=== PATIENT | male | born 1990 | race Caucasian/White ===

== ENCOUNTER 2018-07-01 17:00 | Outpatient (RCR) | payer BC, MEDICAID, SELFPAY ==
--- NOTE | 2018-06-10 16:43 | HP.OTEVAL_ITS ---
Patient's Visit Information HAWA THORNTON is a 27 year old M, referred to Occupational Therapy by RENARD FAUSTIN, with a diagnosis of pain of R middle finger. Date of Evaluation: 06/10/18 Occupational Therapist: She Steen - Subjective Subjective: Pt seen for initial occupational therapy services secondary to increased pain R middle finger DIP joint. Pt stated pain started in early to mid December 2017 while bowling. Pt has continued to have the pain stiffness all the time since December, but sharp pains come and go pending on activity he is completing. Pt independent w/ BADLs/IADLs. Pt independent with writing and states has had some pain with typing. Pt unemployed. - Pain R middle finger 3 Pain Intensity Range: 2, 3 - Objective Objective/Observation: Pt demonstrates increased pain R middle finger DIP joint with movement and at rest. Pt states its very hard to make a fist with R hand. Pt is R hand dominent. - ROM ROM Comments: R DIP flexion 76', hyperextension 5' L DIP flexion 75', hyperextension 7'. 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 - DASH-Disabilities of Arm, Shoulder& Hand DASH Sum: 61 - Goals Goal:: Pt will demo no pain greater than 1/10 at rest R middle finger DIP joint by d/c from OT. Pt will demo no pain greater than 1/10 with movement R middle finger DIP joint by d/c from OT. Goal:: Pt will be educated on joint protection and energy conservation techniques for R middle finger with good understanding and demo 100%x. Goal:: Pt will be educated on R hand HEP with good understanding and demo 100%x. - Rehabilitation General Assessment: Pt demo increased pain R middle finger DIP joint with movement and at rest. Pt would benefit from direct occupational therapy to decrease pain R middle finger DIP joint and educate on HEP and joint protection techniques. Rehabilitation Potential: Good - Anticipated Interventions Anticipated Interventions: A/AAROM/PROM, Massage, Modalities, Orthoses, Joint Protection/Energy Conservation, Fine Motor Coord/Alexey, Education re Correct Donning Tech,Care&Wearing Sched Comp Garments, Home Program - Visit Plan Frequency: 1-2x /Week Duration: 3 Weeks General Plan: decrease pain R middle finger DIP, educate on joint protection R middle finger TEXT: Thank you for the opportunity to evaluate your patient. For Medicare and Medicare HMO plans, please review the plan of care and approve it. It will need to be FAXED BACK to us at [phone] for Medicare purposes. Please let me know if there are questions or concerns regarding this plan of care. Physician Signature: Date:
--- NOTE | 2018-07-01 18:15 | HP.OTDCSUM_ITS ---
HP - OT D/C Summary It has been my pleasure to treat HAWA THORNTON under orders from RENARD FAUSTIN, for the diagnosis of pain of R middle finger for a total of 5 visit(s). Please see the following information for a summary of their discharge status. - Objective Objective/Function: decrease pain of R middle finger - Goals Patient Goals: Decrease Pain, Decrease Swelling/Stiffness, Improve Fine Motor Skills, Use Hand/Wrist/Arm Normally Again, Resume Former Household Responsibilities (Cooking,Cleaning,Yard, etc.), Resume Hobbies Goal:: Pt will demo no pain greater than 1/10 at rest R middle finger DIP joint by d/c from OT. Pt will demo no pain greater than 1/10 with movement R middle finger DIP joint by d/c from OT. Goal:: Pt will be educated on joint protection and energy conservation techniques for R middle finger with good understanding and demo 100%x. Goal:: Pt will be educated on R hand HEP with good understanding and demo 100%x. - Plan Plan: d/c OT services this date - D/C Information Discharge Comments: Pt has been educated on adaptive techniques and energy conservation, joint protection for R middle finger with good understanding and demo. Pt has been educated on taping R middle finger DIP joint during functional activities and bowling to decrease pain with movement. Pt has been educated on use of modalities as needed for pain of R middle finger. Pt educated on joint mobilization exercises R middle finger with good understanding. Pt did not meet goal for pain at rest and with movment. Rec return back to dr. if pain continues to get worse. Pain has fluctuated from 2-4/ 10. D/C OT services at this time. If there are questions or concerns regarding this patient's occupational therapy , please fell free to call me at [phone]. Thank you for the referral of this patient. Sincerely, She Steen
== END 2018-07-01 19:00 | disposition home or self-care (01) ==
LOC: OT 17:00
PROVIDERS: Family Provider Family Medicine; PCP Family Medicine
DX: M79.644 Pain in right finger(s) (principal)
CPT/HCPCS: 97035; 97110; 97165; 97166; 97530

== ENCOUNTER → 2018-12-04 11:04 | Outpatient (CLI) | payer BC, MEDICAID, SELFPAY ==
[2018-12-04 11:52] LABS: Hematocrit 44.3 % (40-54); Hemoglobin 14.8 g/dl (13.0-16.5); Mean Corp Hgb Conc 33.4 g/gl (32-36); Mean Corpuscular Volume 89.9 fL (80-94); Mean Platelet Vol. 10.1 fl (6.2-12.0); Platelet Count 256 K/mm3 (150-450); RBC Distribution Width CV 12.3 % (11.6-14.6); RBC Distribution Width SD 39.8 fl (35.1-43.9); Red Blood Count 4.93 M/mm3 (4.6-6.2); White Blood Count 5.9 K/mm3 (4.4-11.0)
[2018-12-04 11:59] LABS: Scan Indicated on CBC? Y/N NO
[2018-12-04 12:24] LABS: ALB/GLOB Ratio 1.5 RATIO (0.9-2.4); AST(SGOT) 17 U/L (15-37); Alanine Aminotransfer ALT/SGPT 36 U/L (16-61); Albumin, Serum 4.3 g/dL (3.2-5.0); Alkaline Phosphatase 82 U/L (45-117); Anion Gap 8 (5-15); BUN 17 mg/dL (7-18); BUN/Creat Ratio 16.5 RATIO (10-20); Calcium,Total 8.9 mg/dL (8.5-10.1); Chloride 106 mmol/L (98-107); Cholesterol 162 mg/dL (200); Creatinine, Serum 1.03 mg/dL (0.70-1.30); EST Glomerular Filtration Rate 91 mL/min (>60); Est Glom Filt Rate - Afr Amer 111 mL/min (>60); Globulin 2.8 g/dL (2.2-4.2); Glucose 85 mg/dL (74-106); High Density Lipoprotein 41 mg/dL; Potassium 4.5 mmol/L (3.5-5.1); Protein, Total 7.1 g/dL (6.4-8.2); Sodium Level 138 mmol/L (136-145); T4 Free Direct 0.97 ng/dL (0.76-1.46); Thyroid Stim Hormone (TSH) 1.52 uIU/mL (0.358-3.74); Triglycerides 103 mg/dL; Very Low Density Lipoprotein 21 mg/dL (5-40)
== END ==
PROVIDERS: Family Provider Family Medicine; PCP Family Medicine; Referring Provider Psychiatry & Neurology Child & Adolescent Psychiatry; Visit Provider Psychiatry & Neurology Child & Adolescent Psychiatry
DX: F31.32 Bipolar disorder, current episode depressed, moderate (principal); Z51.81 Encounter for therapeutic drug level monitoring
CPT/HCPCS: 36415; 80053; 80061; 84439; 84443; 85027

== ENCOUNTER → 2019-08-13 | Outpatient (CLI) | payer MEDICAID, SELFPAY ==
[2016-06-08 06:56] VITALS: BMI 36.7
--- NOTE | 2019-08-13 10:54 | RAD_ITS ---
HISTORY: LBP COMPARISON: None FINDINGS: # of images incl. paperwork: 5 XR Spine Lumbar 5 Views: Calcification superimposed over the area of the cecum may be an appendicolith Calcification right lateral to the L2-L3 interspace, inferior lateral to the inferior margin of the right kidney is of unknown etiology. It could be some ingested material within the bowel lumen. A few pelvic phleboliths are present within the pelvis. Lumbar vertebral bodies are normal in height. Lumbar disc spaces are well maintained. No acute lumbar spine fracture or subluxation. No significant degenerative change. RAD/L/S Spine Min 4 Views IMPRESSION: No acute lumbar spine fracture or subluxation. at 0602 Reported and signed by: Diogenes Martinez MD Electronically Signed: Diogenes Martinez MD at 6:01 EST Tel , Service support ,
== END | disposition home or self-care (01) ==
LOC: RAD 10:48
PROVIDERS: Family Provider Family Medicine; PCP Family Medicine; Referring Provider Family Medicine; Visit Provider Family Medicine
DX: M54.5 Low back pain (principal); G89.29 Other chronic pain
CPT/HCPCS: 72110

== ENCOUNTER → 2020-06-12 13:02 | Outpatient (CLI) | payer MEDICAID, SELFPAY ==
[2020-06-12 13:52] LABS: Cholesterol 197 mg/dL (200); High Density Lipoprotein 39 mg/dL; Triglycerides 121 mg/dL; Very Low Density Lipoprotein 24 mg/dL (5-40)
== END ==
PROVIDERS: PCP Family Medicine; Referring Provider Family Medicine; Visit Provider Family Medicine
DX: Z00.00 Encounter for general adult medical examination without abnormal findings (principal); Z13.220 Encounter for screening for lipoid disorders
CPT/HCPCS: 36415; 80061

== ENCOUNTER → 2021-04-02 10:20 | Outpatient (CLI) | payer MEDICAID, SELFPAY ==
[2016-06-08 06:56] VITALS: BMI 36.7
[2021-04-02 10:49] LABS: Hematocrit 45.5 % (40-54); Hemoglobin 15.9 g/dL (13.0-16.5); Mean Corp Hgb Conc 34.9 g/dL (32-36); Mean Corpuscular Hgb 30.2 pg (27.0-32.0); Mean Corpuscular Volume 86.5 fL (80-94); Mean Platelet Vol. 9.8 fl (6.2-12.0); Platelet Count 300 K/mm3 (150-450); RBC Distribution Width CV 11.8 % (11.6-14.6); RBC Distribution Width SD 37.2 fl (35.1-43.9); Red Blood Count 5.26 M/mm3 (4.6-6.2); White Blood Count 6.2 K/mm3 (4.4-11.0)
[2021-04-02 11:09] LABS: Hemoglobin A1c 4.9 % (3.8-5.6)
[2021-04-02 11:20] LABS: ALB/GLOB Ratio 1.2 RATIO (0.9-2.4); AST(SGOT) 20 U/L (15-37); Alanine Aminotransfer ALT/SGPT 51 U/L (16-61); Albumin, Serum 4.3 g/dL (3.2-5.0); Alkaline Phosphatase 93 U/L (45-117); Anion Gap 8 (5-15); BUN 17 mg/dL (7-18); Chloride 104 mmol/L (98-107); Cholesterol 188 mg/dL (200); Creatinine, Serum 1.21 mg/dL (0.70-1.30); EST Glomerular Filtration Rate 75 mL/min (>60); Est Glom Filt Rate - Afr Amer 90 mL/min (>60); Globulin 3.5 g/dL (2.2-4.2); Glucose 94 mg/dL (74-106); High Density Lipoprotein 39 mg/dL; Protein, Total 7.8 g/dL (6.4-8.2); Sodium Level 138 mmol/L (136-145); Triglycerides 119 mg/dL; Very Low Density Lipoprotein 24 mg/dL (5-40)
== END ==
PROVIDERS: PCP Family Medicine; Referring Provider Psychiatry & Neurology Child & Adolescent Psychiatry; Visit Provider Psychiatry & Neurology Child & Adolescent Psychiatry
DX: Z79.899 Other long term (current) drug therapy (principal)
CPT/HCPCS: 36415; 80053; 80061; 83036; 85027

== ENCOUNTER → 2023-03-05 | Outpatient (CLI) | payer MEDICAID, SELFPAY ==
[2023-03-05 10:08] LABS: Hematocrit 44.1 % (40-54); Hemoglobin 15.4 g/dL (13.0-16.5); Mean Corp Hgb Conc 34.9 g/dL (32-36); Mean Corpuscular Hgb 30.7 pg (27.0-32.0); Mean Platelet Vol. 9.8 fl (6.2-12.0); Platelet Count 295 K/mm3 (150-450); RBC Distribution Width CV 11.9 % (11.6-14.6); RBC Distribution Width SD 38.5 fl (35.1-43.9); Red Blood Count 5.01 M/mm3 (4.6-6.2); White Blood Count 5.8 K/mm3 (4.4-11.0)
[2023-03-05 10:37] LABS: ALB/GLOB Ratio 1.2 RATIO (0.9-2.4); AST(SGOT) 18 U/L (15-37); Alanine Aminotransfer ALT/SGPT 34 U/L (16-61); Albumin, Serum 4.1 g/dL (3.2-5.0); Alkaline Phosphatase 82 U/L (45-117); Anion Gap 5 (5-15); BUN 17 mg/dL (7-18); BUN/Creat Ratio 14.8 RATIO (10-20); Chloride 108 mmol/L (98-107); Cholesterol 163 mg/dL (200); Creatinine, Serum 1.15 mg/dL (0.70-1.30); EST Glomerular Filtration Rate 78 mL/min (>60); Est Glom Filt Rate - Afr Amer 95 mL/min (>60); Globulin 3.3 g/dL (2.2-4.2); Glucose 101 mg/dL (74-106); High Density Lipoprotein 35 mg/dL; Protein, Total 7.4 g/dL (6.4-8.2); Sodium Level 139 mmol/L (136-145); Triglycerides 75 mg/dL; Very Low Density Lipoprotein 15 mg/dL (5-40)
== END | disposition home or self-care (01) ==
LOC: LAB 09:37
PROVIDERS: PCP Family Medicine; Referring Provider Psychiatry & Neurology Child & Adolescent Psychiatry; Visit Provider Psychiatry & Neurology Child & Adolescent Psychiatry
DX: Z79.899 Other long term (current) drug therapy (principal)
CPT/HCPCS: 36415; 80053; 80061; 83036; 85027

== ENCOUNTER 2025-03-25 16:42 | Emergency (ER) | payer MEDICAID, SELFPAY ==
[2025-03-25 16:43] VITALS: BP 167/86; PULSE 81; RESP 20; TEMP 36.6; O2SAT 97; BMI 31.0
--- OUTSIDE RECORDS SUMMARY | 2025-03-25 17:39 | XMS RPT_ITS | CCD ---
Author Organization [facility] Care Team Providers Care Precinct Captain Name Role Phone Nicolette Banks Referring Unavailable Nicolette Banks Attending Unavailable Allen Mitchell Primary Care Unavailable Allergies Allergy Classification Reported Allergen(s) Allergy Type Date of Onset Reaction(s) Facility (1 source) Gentamicin Drug Allergy 06-06-2016 Other [facility] (1 source) Vancomycin Drug Allergy 06-06-2016 Other [facility] (1 source) Gentamicin Sulfate ([facility]) Drug Allergy 06-06-2016 [facility] Repository (1 source) Vancomycin Drug Allergy 06-06-2016 [facility] Repository Medications Current Medications Medication Drug Class(es) Dates Sig (Normalized) Sig (Original) cetirizine hydrochloride 10 mg oral capsule (1 source) Histamine-1 Receptor Antagonist Start: 06-08-2016 take 1 capsule by mouth once daily Cetirizine (Allergy Relief) 10 MG capsule Active 10 MG PO DAILY June 08, 2016 12:00am enalapril maleate 10 mg oral tablet (1 source) Angiotensin Converting Enzyme Inhibitor Start: 06-08-2016 take 10 mg by mouth once daily Enalapril Maleate Active 10 MG PO DAILY June 08, 2016 12:00am escitalopram 5 mg oral tablet (1 source) Serotonin Reuptake Inhibitor Start: 06-08-2016 take 1 tablet by mouth once daily Escitalopram Oxalate (Lexapro) 5 MG tablet Active 5 MG PO DAILY June 08, 2016 12:00am lansoprazole 30 mg delayed release oral capsule (1 source) Proton Pump Inhibitor Start: 06-08-2016 take 30 mg by mouth once daily Lansoprazole Active 30 MG PO DAILY June 08, 2016 12:00am Melatonin (1 source) Start: 06-08-2016 take 6 mg by mouth at bedtime Melatonin Active 6 MG PO AT BEDTIME June 08, 2016 12:00am ondansetron 4 mg disintegrating oral tablet (1 source) Serotonin-3 Receptor Antagonist Start: 06-08-2016 take 4 mg by mouth every eight hours as needed Ondansetron Active 4 MG PO EVERY 8 HOURS NEEDED June 08, 2016 12:00am ziprasidone 40 mg oral capsule (1 source) Atypical Antipsychotic Start: 06-08-2016 take 40 mg by mouth at bedtime Ziprasidone Hcl Active 40 MG PO AT BEDTIME June 08, 2016 12:00am Problems Problem Classification Problem Date Documented Da te Episodic/Chronic Other aftercare (1 source) Other skilled nursing (current) drug therapy; Translations: [Other skilled nursing (current) drug therapy] Onset: 03-27-2023 Episodic Results Test Name Value Interpretation Reference Range Facility Basophil percentageOrdered B y: Dr. Banks on 03-05-2023 Bilirubin [Mass/Vol] 0.50 mg/dL 0.20-1.00 [facility] Comment on above: For patients on eltr ombopag therapy, use of Dimension [place] TBIL is not recommended. Chloride [Moles/Vol] 108 mmol/L 98-107 [facility] Cholesterol [Mass/Vol] 163 mg/dL <200 [facility] Comment on above: <200 mg/dL Desirable 200-240 mg/dL Borderline >240 mg/dL High Risk Glucose [Mass/Vol] 101 mg/dL 74-106 [facility] Comment on above: Fasting Glucose resu lt from 100 to 125 mg/dL suggests IMPAIRED HOMEOSTASIS per A.D.A. criteria. Potassium [Moles/Vol] 4.0 mmol/L 3.5-5.1 [facility] Protein [Mass/Vol] 7.4 g/dL 6.4-8.2 [facility] Sodium [Moles/Vol] 139 mmol/L 136-145 [facility] Triglyceride [Mass/Vol] 75 mg/dL <199 [facility] Comment on above: The drugs N-Acetylcy steine and Metamizole may falsely depress this assay.Serum Triglycerides Reference Interval Normal <150 mg/dL Borderline high 150 - 199 mg/dL High 200 - 499 mg/dL Very High > or = 500 mg/dL WBC (Bld) [#/Vol] 5.8 10*3/uL 4.4-11.0 [facility] Blood erythrocytes count (nu mber/volume)Ordered By: Dr. Banks on 03-05-2023 RBC (Bld) [#/Vol] 5.01 10*6/uL 4.6-6.2 [facility] Blood hemoglobin measurement (mass/volume)Ordered By: Dr. Banks on 03-05-2023 Hemoglobin (Bld) [Mass/Vol] 15.4 g/dL 13.0-16.5 [facility] Blood platelet mean volumeOr dered By: Dr. Banks on 03-05-2023 Platelet mean volume (Bld) [Entitic vol] 9.8 fL 6.2-12.0 [facility] CBC-Complete Blood Cnt No Di ffon 03-05-2023 Erythrocyte distribution width (RBC) [Ratio] 11.9 % Normal 11.6-14.6 [facility] Comment on above: Performed By: #### L 500.4050, L500.4100, L100.0500, L501.9985 #### [facility] [address] [place], [address] Hematocrit (Bld) [Volume fraction] 44.1 % Normal 40-54 [facility] Comment on above: Performed By: #### L 500.4050, L500.4100, L100.0500, [id number] #### [facility] [address] [place], [address] Hemoglobin (Bld) [Mass/Vol] 15.4 g/dL Normal 13.0-16.5 [facility] Comment on above: Performed By: #### L 500.4050, L500.4100, L100.0500, [id number] #### [facility] [address] [place], [address] MCH (RBC) [Entitic mass] 30.7 pg Normal 27.0-32.0 [facility] Comment on above: Performed By: #### L 500.4050, L500.4100, L100.0500, [id number] #### [facility] [address] [place], [address] MCHC (RBC) [Mass/Vol] 34.9 g/dL Normal 32-36 [facility] Comment on above: Performed By: #### L 500.4050, L500.4100, L100.0500, [id number] #### [facility] [address] [place], [address] MCV (RBC) [Entitic vol] 88.0 fL Normal 80-94 [facility] Comment on above: Performed By: #### L 500.4050, L500.4100, L100.0500, [id number] #### [facility] [address] [place], [address] Platelet mean volume (Bld) [Entitic vol] 9.8 fL Normal 6.2-12.0 [facility] Comment on above: Performed By: #### L 500.4050, L500.4100, L100.0500, [id number] #### [facility] [address] [place], [address] Platelets (Bld) [#/Vol] 295 10*3/uL Normal 150-450 [facility] Comment on above: Performed By: #### L 500.4050, L500.4100, L100.0500, [id number] #### [facility] [address] [place], [address] RBC (Bld) [#/Vol] 5.01 10*6/uL Normal 4.6-6.2 [facility] Comment on above: Performed By: #### L 500.4050, L500.4100, L100.0500, [id number] #### [facility] [address] [place], [address] RDW SD 38.5 fl Normal 35.1-43.9 [facility] Comment on above: Performed By: #### L 500.4050, L500.4100, L100.0500, [id number] #### [facility] [address] [place], [address] WBC (Bld) [#/Vol] 5.8 10*3/uL Normal 4.4-11.0 [facility] Comment on above: Performed By: #### L 500.4050, L500.4100, L100.0500, [id number] #### [facility] [address] [place], [address] Comprehensive Metabolic Prof [facility] 03-05-2023 Albumin [Mass/Vol] 4.1 g/dL Normal 3.2-5.0 [facility] Comment on above: Performed By: #### L 500.4050, L500.4100, L100.0500, [id number] #### [facility] [address] [place], [address] Albumin/Globulin [Mass ratio] 1.2 {ratio} Normal 0.9-2.4 [facility] Comment on above: Performed By: #### L 500.4050, L500.4100, L100.0500, [id number] #### [facility] [address] [place], [address] ALK P 82 U/L Normal 45-117 [facility] Comment on above: Performed By: #### L 500.4050, L500.4100, L100.0500, [id number] #### [facility] [address] [place], [address] ALT [Catalytic activity/Vol] 34 U/L Normal 16-61 [facility] Comment on above: Performed By: #### L 500.4050, L500.4100, L100.0500, [id number] #### [facility] [address] [place], [address] AST [Catalytic activity/Vol] 18 U/L Normal 15-37 [facility] Comment on above: Performed By: #### L 500.4050, L500.4100, L100.0500, [id number] #### [facility] [address] [place], [address] Bilirubin [Mass/Vol] 0.50 mg/dL Normal 0.20-1.00 [facility] Comment on above: Result Comment: For patients on eltrombopag therapy, use of Dimension [place] TBIL is not recommended. Performed By: #### L 500.4050, L500.4100, L100.0500, [id number] #### [facility] [address] [place], [address] BUN/CRE 14.8 RATIO Normal 10-20 [facility] Comment on above: Performed By: #### L 500.4050, L500.4100, L100.0500, [id number] #### [facility] [address] [place], [address] CA,Total 9.0 mg/dL Normal 8.5-10.1 [facility] Comment on above: Performed By: #### L 500.4050, L500.4100, L100.0500, [id number] #### [facility] [address] [place], [address] Chloride [Moles/Vol] 108 mmol/L High 98-107 [facility] Comment on above: Performed By: #### L 500.4050, L500.4100, L100.0500, [id number] #### [facility] [address] [place], [address] CO2 [Moles/Vol] 26.0 mmol/L Normal 21.0-32.0 [facility] Comment on above: Performed By: #### L 500.4050, L500.4100, L100.0500, L501.9985 #### [facility] [address] [place], [address] Creatinine [Mass/Vol] 1.15 mg/dL Normal 0.70-1.30 [facility] Comment on above: Result Comment: The validity of the calculated GFR GFRAA in patients over 70 years has not been determined. Clinical correlation is essential. Performed By: #### L 500.4050, L500.4100, L100.0500, L501.9985 #### [facility] [address] [place], [address] EST GFR - AA 95 mL/min Normal >60 [facility] Comment on above: Result Comment: Afri can [place] GFR Calc Performed By: #### L 500.4050, L500.4100, L100.0500, L501.9985 #### [facility] [address] [place], [address] GAP 5 Normal 5-15 [facility] Comment on above: Performed By: #### L 500.4050, L500.4100, L100.0500, L501.9985 #### [facility] [address] [place], [address] GFR/1.73 sq M.predicted among non-blacks MDRD (S/P/Bld) [Vol rate/Area] 78 mL/min/{1.73_m2} Normal >60 [facility] Comment on above: Result Comment: Non- GFR Calc Performed By: #### L 500.4050, L500.4100, L100.0500, L501.9985 #### [facility] [address] [place], [address] Globulin (S) [Mass/Vol] 3.3 g/dL Normal 2.2-4.2 [facility] Comment on above: Performed By: #### L 500.4050, L500.4100, L100.0500, L501.9985 #### [facility] [address] [place], [address] Glucose [Mass/Vol] 101 mg/dL Normal 74-106 [facility] Comment on above: Result Comment: Fast ing Glucose result from 100 to 125 mg/dL suggests IMPAIRED HOMEOSTASIS per A.D.A. criteria. Performed By: #### L 500.4050, L500.4100, L100.0500, L501.9985 #### [facility] [address] [place], [address] Potassium [Moles/Vol] 4.0 mmol/L Normal 3.5-5.1 [facility] Comment on above: Performed By: #### L 500.4050, L500.4100, L100.0500, L501.9985 #### [facility] [address] [place], [address] Sodium [Moles/Vol] 139 mmol/L Normal 136-145 [facility] Comment on above: Performed By: #### L 500.4050, L500.4100, L100.0500, L501.9985 #### [facility] [address] [place], [address] T PROT 7.4 g/dL Normal 6.4-8.2 [facility] Comment on above: Performed By: #### L 500.4050, L500.4100, L100.0500, L501.9985 #### [facility] [address] [place], [address] Urea nitrogen [Mass/Vol] 17 mg/dL Normal 7-18 [facility] Comment on above: Performed By: #### L 500.4050, L500.4100, L100.0500, L501.9985 #### [facility] [address] [place], [address] Determination of erythrocyte mean corpuscular volume (MCV)Ordered By: Dr. Banks on 03-05-2023 MCV (RBC) [Entitic vol] 88.0 fL 80-94 [facility] Hematocrit Auto (Bld) [Volum e fraction]Ordered By: Dr. Banks on 03-05-2023 Hematocrit (Bld) [Volume fraction] 44.1 % 40-54 [facility] Hemoglobin A1con 03-05-2023 HbA1c (Bld) [Mass fraction] 5.0 % Normal 3.8-5.6 [facility] Comment on above: Result Comment: Norm al < 5.7 % Prediabetic 5.7 - 6.4 % Diabetic >or= 6.5 % Please note range changes. Performed By: #### L 500.4050, L500.4100, L100.0500, L501.9985 #### [facility] [address] [place] [address], [address] Laboratory - Chemistry and C hemistry - challengeOrdered By: Dr. Banks on 03-05-2023 ALP [Catalytic activity/Vol] 82 U/L 45-117 [facility] ALT [Catalytic activity/Vol] 34 U/L 16-61 [facility] CO2 [Moles/Vol] 26.0 mmol/L 21.0-32.0 [facility] Globulin (S) [Mass/Vol] 3.3 g/dL 2.2-4.2 [facility] Urea nitrogen/Creatinine [Mass ratio] 14.8 mg/mg 10-20 [facility] Laboratory - Hematology and Cell countsOrdered By: Dr. Banks on 03-05-2023 Erythrocyte distribution width (RBC) [Entitic vol] 38.5 fL 35.1-43.9 [facility] Erythrocyte distribution width (RBC) [Ratio] 11.9 % 11.6-14.6 [facility] MCH (RBC) [Entitic mass] 30.7 pg 27.0-32.0 [facility] Lipid Profileon 03-05-2023 Cholesterol [Mass/Vol] 163 mg/dL Normal 200 [facility] Comment on above: Result Comment: <200 mg/dL Desirable 200-240 mg/dL Borderline >240 mg/dL High Risk Performed By: #### L 500.4050, L500.4100, L100.0500, L501.9985 #### [facility] [address] [place], [address] Cholesterol in HDL [Mass/Vol] 35 mg/dL Low [facility] Comment on above: Result Comment: The drugs N-Acetylcysteine and Metamizole may falsely depress this assay. Reference Range HDL <40 mg/dL Low HDL Cholesterol HDL >or= 60 mg/dL High HDL Cholesterol Performed By: #### L 500.4050, L500.4100, L100.0500, L501.9985 #### [facility] [address] [place], [address] Cholesterol in LDL [Mass/Vol] 113 mg/dL Normal 0-130 [facility] Comment on above: Performed By: #### L 500.4050, L500.4100, L100.0500, L501.9985 #### [facility] [address] [place], [address] Cholesterol in VLDL [Mass/Vol] 15 mg/dL Normal 5-40 [facility] Comment on above: Performed By: #### L 500.4050, L500.4100, L100.0500, L501.9985 #### [facility] [address] [place], [address] Triglyceride [Mass/Vol] 75 mg/dL Normal [facility] Comment on above: Result Comment: The drugs N-Acetylcysteine and Metamizole may falsely depress this assay. Serum Triglycerides Reference Interval Normal <150 mg/dL Borderline high 150 - 199 mg/dL High 200 - 499 mg/dL Very High > or = 500 mg/dL Performed By: #### L 500.4050, L500.4100, L100.0500, L501.9985 #### [facility] [address] [place], [address] MCHC Auto (RBC) [Mass/Vol]Or dered By: Dr. Banks on 03-05-2023 MCHC (RBC) [Mass/Vol] 34.9 g/dL 32-36 [facility] No Panel InformationOrdered By: Dr. Banks on 03-05-2023 Estimated GFR (MDRD) Amer 95 mL/min >60 [facility] Comment on above: GFR Calc Estimated GFR (MDRD) Non-Af Amer 78 mL/min >60 [facility] Comment on above: Non- GFR Calc Platelets bldOrdered By: Dr. Banks on 03-05-2023 Platelets (Bld) [#/Vol] 295 10*3/uL 150-450 [facility] Serum or plasma albumin asher urement (mass/volume)Ordered By: Dr. Banks on 03-05-2023 Albumin [Mass/Vol] 4.1 g/dL 3.2-5.0 [facility] Serum or plasma albumin/glob ulin mass ratioOrdered By: Dr. Banks on 03-05-2023 Albumin/Globulin [Mass ratio] 1.2 {ratio} 0.9-2.4 [facility] Serum or plasma calcium asher urement (mass/volume)Ordered By: Dr. Banks on 03-05-2023 Calcium [Mass/Vol] 9.0 mg/dL 8.5-10.1 [facility] Serum or plasma cholesterol in HDL measurement (mass/volume)Ordered By: Dr. Banks on 03-05-2023 Cholesterol in HDL [Mass/Vol] 35 mg/dL >40 [facility] Comment on above: The drugs N-Acetylcy steine and Metamizole may falsely depress this assay. Reference Range HDL <40 mg/dL Low HDL Cholesterol HDL >or= 60 mg/dL High HDL Cholesterol Serum or plasma cholesterol in VLDL measurement (mass/volume)Ordered By: Dr. Banks on 03-05-2023 Cholesterol in VLDL [Mass/Vol] 15 mg/dL 5-40 [facility] Serum or plasma creatinine m easurement (mass/volume)Ordered By: Dr. Banks on 03-05-2023 Creatinine [Mass/Vol] 1.15 mg/dL 0.70-1.30 [facility] Comment on above: The validity of the calculated GFR & GFRAA in patients over 70 years has not been determined. Clinical correlation is essential. Serum or plasma low density lipoprotein (LDL) cholesterol measurement (mass/volume)Ordered By: Dr. Banks on 03-05-2023 Cholesterol in LDL [Mass/Vol] 113 mg/dL 0-130 [facility] Serum or plasma urea nitroge n measurement (mass/volume)Ordered By: Dr. Banks on 03-05-2023 Urea nitrogen [Mass/Vol] 17 mg/dL 7-18 [facility] Thin prep Papanicolaou smear with manual screeningOrdered By: Dr. Banks on 03-05-2023 Thin prep Papanicolaou smear with manual screening 18 U/L 15-37 [facility] Thin prep Papanicolaou smear with manual screening 5 5-15 [facility] Whole blood hemoglobin A1c/t otal hemoglobin ratio (mass fraction)Ordered By: Dr. Banks on 03-05-2023 HbA1c (Bld) [Mass fraction] 5.0 % 3.8-5.6 [facility] Comment on above: Normal < 5.7 % Predi abetic 5.7 - 6.4 % Diabetic >or= 6.5 % Please note range changes. Encounters Encounter Date Encounter Type Care Provider Facility Start: 03-05-2023 End: 03-05-[address] [facility] Work Phone: Start: 03-05-2023 End: 03-05-2023 Patient encounter procedure [facility] Payers Date Payer Category Payer Self-pay [id number] 2023 Unknown [id number] [address] [facility] [id number] Unknown ANTHEM [id number] Unknown [id number] Social History Date Type Detail Facility Start: 06-08-2016 Tobacco smoking stat us NHIS Unknown if ever smoked [facility] Start: 1990 Sex Assigned At Male [facility] Evaluation note Note Date & Type Note Facility Evaluation note No assessment information availa ble [facility] Work Phone: Advance Directives No Advanced Directives Records Found Advance Directive Response Recorded Date/ Time Living Will No June 08 6 6:56am Power of [employer] No June 08 016 6:56am Summary Purpose Family History No Family History Records Found Additional Source Comments Care Teams (unrecognized sec tion and content) Team Status: Active Member Role Status Dates Dr. Allen Mitchell DO Family Provider Active Dr. Allen Mitchell DO Primary Care Provider Active Team Status: Inactive Member Role Status Dates Dr. Allen Mitchell DO Primary Care Provider Active Dr. Nicolette Banks MD Attending Provider, Referring Pro vider Active Goals (unrecognized section and content) Goals may be documented in a n alternate section (unrecognized sect ion and content) No Status Records Found INFORMATION SOURCE (unrecogn ized section and content) DATE CREATED AUTHOR 03/27/2023 [facility] FOR RECORDS PERTAINING TO PATIENTS WHO ARE OR HAVE BEEN ENROLLED IN A CHEMICAL DEPENDENCY/SUBSTANCEABUSE PROGRAM, SOME INFORMATION MAY BE OMITTED. This clinical summary was aggregated from multiple sources. Caution should be exercised in using it in the provision of clinical care. This summary normalizes information from multiple sources, and as a consequence, information in this document may materially change the coding, format and clinical context of patient data. In addition, data may be omitted in some cases. CLINICAL DECISIONS SHOULD BE BASED ON THE PRIMARY CLINICAL RECORDS. [employer] provides no warranty or guarantee of the accuracy or completeness of information in this document.
--- NOTE | 2025-03-25 17:49 | EKG12_ITS ---
Test Reason : CP Blood Pressure : */* mmHG Vent. Rate : 75 BPM Atrial Rate : 75 BPM P-R Int : 148 ms QRS Dur : 84 ms QT Int : 366 ms P-R-T Axes : 31 19 9 degrees QTcB Int : 408 ms Normal sinus rhythm with sinus arrhythmia Normal ECG Confirmed by BEKAH POWER, CORONA ([id number]), non linear editor AUDREY CARMONA ([id number]) on 03/28/2025 7:47:36 AM Referred By: CHRISTO/KRYS Confirmed By: CORONA GODFREY MD
--- NOTE | 2025-03-25 17:49 | ED.VIS.CHEST ---
HPI History of Present Illness Chief Complaint: Chest Pain Informant: patient and parent (Mother) Narrative Narrative: 34-year-old male presenting to the emergency room with an intermittent chest pressure on the left side of his chest. Patient states that current world events started his anxiety to be higher than normal. He notes a near constant but intermittent pressure-like sensation just inferior to his left pectoralis muscle. Nothing seems to make it better or worse. When it comes on he feels some discomfort in his throat. Does have a history of GERD is on pantoprazole. He drove to [facility] 2 weeks ago. He denies any leg swelling. No difficulty taking a deep breath/pleuritic chest pain. He denies any cough or fever. No rashes. He notes the pain does not radiate towards the back. No arm symptoms. [facility] Medical History (Updated 03/25/25 @ 19:[address] Alfredo Spicer DO) Anxiety GERD (gastroesophageal reflux disease) Home Medications ?Medication ?Instructions ?Recorded ?Last Taken ?Type enalapril maleate 10 mg tablet 10 mg PO DAILY 06/08/16 Unknown History escitalopram oxalate 5 mg tablet 5 mg PO DAILY 06/08/16 Unknown History (Lexapro) montelukast 10 mg tablet mg PO 07/03/23 Unknown History pantoprazole 20 mg tablet,delayed mg PO 07/03/23 Unknown History release ziprasidone HCl 60 mg capsule mg PO 07/03/23 Unknown History Allergy/AdvReac Type Severity Reaction Status Date / Time gentamicin AdvReac Other Verified 03/25/25 16:43 vancomycin AdvReac Other Verified 03/25/25 16:43 Social History Smoking Status: Never smoker ROS ROS ED Constitutional Constitutional ED: Denies chills or weight loss Eyes Eyes: Denies change in vision or diplopia ENT ENT ED: Denies ear pain, rhinorrhea or sore throat Cardiovascular Cardiovascular: Reports as per HPI and chest pain; Denies orthopnea, palpitations or racing heartbeat Respiratory/Chest Respiratory/Chest: Denies cough, dyspnea or orthopnea Gastrointestinal Gastrointestinal: Denies abdominal pain, diarrhea, nausea or vomiting Genitourinary Genitourinary ED: Denies dysuria, hematuria or urinary frequency Musculoskeletal Musculoskeletal: Denies arthralgias or myalgias Integumentary Denies abscess or rash Neurologic Neurologic: Denies headache(s) or weakness Psychiatric Psychiatric: Denies anxiety, depression, suicidal ideation or suicidal thoughts Endocrine Endocrinology: Denies polydipsia, polyphagia or polyuria Allergic/Immunologic Allergic/Immunologic ED: Denies mouth swelling, tongue swelling or urticaria EXAM Physical Exam Const Vital Signs: 03/25/25 16:43 03/25/25 17:59 03/25/25 18:03 Temperature 98 F Temperature Source Temporal Pulse Rate 81 69 Respiratory Rate 20 H 18 Respiratory Effort Normal Non-Labored Blood Pressure 167/86 H 136/86 H Blood Pressure Mean 113 102 Pulse Ox 97 98 Oxygen Delivery Method Room Air Room Air 03/25/25 18:38 Temperature Temperature Source Pulse Rate 74 Respiratory Rate 18 Respiratory Effort Blood Pressure 124/77 H Blood Pressure Mean 92 Pulse Ox 97 Oxygen Delivery Method Room Air Positive well nourished and well developed General Appearance ED: well developed HEENT Reports normocephalic, head/scalp atraumatic and moist mucous membranes Eyes PERRL and EOMs intact bilaterally Neck no lymphadenopathy, supple and no JVD Chest Wall inspection of chest normal and palpation of chest normal Resp normal respiratory effort and clear to auscultation bilaterally Cardio regular rate, regular rhythm and no murmurs Peripheral Pulses: pulses 2+ throughout GI normal to inspection, nondistended, normoactive bowel sounds and non-tender Palpation: soft Back/Spine no CVA tenderness and normal ROM Extremity normal to inspection General Extremety ED: Negative for edema General Extremity: Negative for edema Neuro oriented x3 and CN's II-XII intact bilaterally Sensorium / Orientation: alert Motor Exam: strength 5/5 throughout Psych mental status grossly normal Mood & Affect: Negative for depressed or tearful Skin no rashes or lesions noted and no wounds MDM MDM MDM Narrative Medical decision making narrative: Differential diagnosis includes but not limited to acute coronary syndrome pleural effusion pulmonary embolism aortic dissection pneumothorax GERD hiatal hernia pericarditis myocarditis pneumonia costochondritis Patient's EKG demonstrates a normal sinus rhythm with a ventricular rate of 75 bpm. Troponin is 6. D-dimer is elevated 3.43. CTA of the chest negative for central pulmonary embolism. Please see radiologist read. There is no obvious effusion. My independent interpretation a chest x-ray is no acute process. No evidence of dissection. White count 7.4 BMP within normal limits. Patient's had no events on the monitor. At this point I think the patient can be discharged home. This could be anxiety that this could be GERD but I do not see a reason that we need to hospitalize him at this time. Patient and his mother are comfortable with this plan return if worsening or concerns History & Record Review Discussion w/independent historian: Patient and Family (Mother) Additional record(s) reviewed:: Prior ED visit and Prior labs Lab Data Attestation: I reviewed the patient's lab results. Labs: Laboratory Results - last 24 hr 03/25/25 17:50 WBC 7.4 RBC 4.97 Hgb 15.1 Hct 43.5 MCV 87.5 MCH 30.4 MCHC 34.7 RDW Std Deviation 38.5 RDW Coeff of Artem 12.0 Plt Count 327 MPV 9.7 Immature Gran % (Auto) 0.400 Neut % (Auto) 72.3 H Lymph % (Auto) 14.9 L Barren % (Auto) 11.6 H Eos % (Auto) 0.3 Baso % (Auto) 0.5 Absolute Neuts (auto) 5.4 Absolute Lymphs (auto) 1.11 Nucleated RBC % 0 D-Dimer Quant (PE/DVT) 3.43 H* Sodium 140 Potassium 4.2 Chloride 104 Carbon Dioxide 22.3 Anion Gap 13 BUN 8 Creatinine 1.02 Estim Creat Clear Calc 109.15 Est GFR (MDRD) Non-Af 99 BUN/Creatinine Ratio 7.5 L Glucose 93 Calcium 9.8 Troponin T High Sens 6 Radiography Diagnostic Testing: Clinical Impression(s) from Imaging Studies Chest X-Ray 03/25/25 17:50 IMPRESSION: Negative Chest. Reading Location: [facility] Chest CTA 03/25/25 18:38 IMPRESSION: LIMITED. NO LARGE CENTRAL PULMONARY EMBOLI. Reading Location: [facility] EKG Initial EKG: Attestation: I personally reviewed and interpreted this EKG as follows: Comments: Normal sinus rhythm ventricular rate of 75 bpm Discharge Plan Triage Chief Complaint: Chest Pain ED Provider: Alfredo Spicer Dx/Rx/DC Orders Clinical Impression: Chest pain, Anxiety Instructions: ED Chest Pain, Noncardiac Prescriptions: No Action ziprasidone HCl 60 mg capsule PO Patient Comments: TAKE 1 CAPSULE BY MOUTHCEVERY NIGHT AT BEDTIME montelukast 10 mg tablet PO Patient Comments: TAKE 1 TABLET BY MOUTHdONCE DAILY pantoprazole 20 mg tablet,delayed release (DR/EC) PO Patient Comments: TAKE ONE TABLET BY MOUTHEEVERY DAYHE enalapril maleate 10 MG tablet 10 mg PO DAILY Patient Comments: escitalopram oxalate [Lexapro] 5 MG tablet 5 mg PO DAILY Primary Care Provider: Allen Mitchell Referrals: Allen Mitchell DO [Primary Care Provider] - As Needed Print Language: Turkmen Disposition Disposition: Home, Self Care
--- NOTE | 2025-03-25 17:50 | RAD_ITS ---
PROCEDURE: CHEST 1 VIEW (PORTABLE) 03/25/2025 REASON FOR EXAM: CHEST PAIN TECHNIQUE: Frontal view of the chest. COMPARISON: None. FINDINGS: Hardware: None. Heart: The heart size is normal. Lungs: No focal consolidation, pleural effusion or pneumothorax. Bones: The bones are unremarkable. RAD/Chest 1 View (Portable) IMPRESSION: Negative Chest. Reading Location: [id number]
[2025-03-25 18:03] VITALS: BP 136/86; PULSE 69; RESP 18; O2SAT 98
[2025-03-25 18:06] LABS: Absolute Lymphocyte Count 1.11 X10^3/uL (0.83-4.51); Absolute Neutrophil Count 5.4 X10^3/uL (2.0-7.7); Basophil# 0.04 X10^3/uL; Basophil% 0.5 % (0-1); Eosinophil# 0.02 X10^3/uL; Eosinophils% 0.3 % (0-5); Hematocrit 43.5 % (40-54); Hemoglobin 15.1 g/dL (13.0-16.5); Lymphocyte # 1.11 X10^3/ul (0.83-4.51); Lymphocyte % 14.9 % (19-41); Mean Corp Hgb Conc 34.7 g/dL (32-36); Mean Corpuscular Hgb 30.4 pg (27.0-32.0); Mean Corpuscular Volume 87.5 fL (80-94); Mean Platelet Vol. 9.7 fl (6.2-12.0); Monocyte# 0.86 X10^3/uL; Monocyte% 11.6 % (0-10); NRBC Flagged by Analyzer 0 % (0-5); Neutrophil # 5.38 X10^3/uL (2.7-7.7); Neutrophil % 72.3 % (47-70); Platelet Count 327 K/mm3 (150-450); RBC Distribution Width SD 38.5 fl (35.1-43.9); Red Blood Count 4.97 M/mm3 (4.6-6.2); White Blood Count 7.4 K/mm3 (4.4-11.0)
[2025-03-25 18:23] LABS: Anion Gap 13 (5-15); BUN 8 mg/dL (4-19); BUN/Creat Ratio 7.5 RATIO (10-20); Calcium,Total 9.8 mg/dL (7.6-11.0); Carbon Dioxide 22.3 mmol/L (21.0-32.0); Chloride 104 mmol/L (98-108); Creatinine, Serum 1.02 mg/dL (0.70-1.20); EST Glomerular Filtration Rate 99 (>60); Estimated Creatinine Clearance 109.15 ml/min (50-250); Glucose 93 mg/dL (70-99); Potassium 4.2 mmol/L (3.3-5.1); Sodium Level 140 mmol/L (133-145); Troponin T High Sensitivity 6 ng/L (<=22)
[2025-03-25 18:36] LABS: D-Dimer Quantitative (DVT/PE) 3.43 FEU/ug/m (0.27-0.49)
[2025-03-25 18:38] VITALS: BP 124/77; PULSE 74; RESP 18; O2SAT 97
--- NOTE | 2025-03-25 18:38 | CT_ITS ---
PROCEDURE: CTA CHEST W/WO CONTRAST 03/25/2025 REASON FOR EXAM: PULMONARY EMBOLISM TECHNIQUE: CTA axial imaging of the chest with intravenous contrast. Coronal and Sagittal reconstruction series were provided. 3D, 3D post processing, 3D reconstructions, Maximum intensity projection (MIPs) Volume rendering and Shaded surface rendering was provided. PATIENT PREPARATION: Per protocol CONTRAST: Isovue 370 VOLUME: 100mL One or more dose reduction techniques were used (e.g., Automated exposure control, adjustment of the mA and/or kV according to patient size, use of iterative reconstruction technique). RADIATION DOSE SUMMARY: CTDlvol: 24 mGy DLP: 500 mGycm COMPARISON: Same day chest radiograph. FINDINGS: Hardware: None. Lymph nodes: No axillary, mediastinal or hilar lymphadenopathy. Heart: The heart is normal in size without pericardial effusion. The great vessels are normal in caliber. Pulmonary Vessels: No large central pulmonary emboli are identified. Contrast timing is suboptimal for evaluation of more distal branches. Lungs and Airways: The central airways are patent. No suspicious pulmonary nodule. No pleural effusion or pneumothorax. Upper Abdomen: Visualized portions of the upper abdominal viscera are unremarkable. Bones: Bone windows are unremarkable. CT/CTA Chest W/WO Contrast IMPRESSION: LIMITED. NO LARGE CENTRAL PULMONARY EMBOLI. Reading Location: [id number]
[2025-03-25 19:37] VITALS: BP 124/77; PULSE 73; RESP 18; TEMP 36.6; O2SAT 97
== END 2025-03-25 19:39 | disposition home or self-care (01) ==
PROVIDERS: Emergency Provider Emergency Medicine; PCP Family Medicine; Visit Provider Emergency Medicine
DX: R07.89 Other chest pain (principal); K21.9 Gastro-esophageal reflux disease without esophagitis; F41.9 Anxiety disorder, unspecified; Z79.899 Other long term (current) drug therapy
CPT/HCPCS: 71045; 71275; 80048; 84484; 85025; 85379; 93005; 99284; Q9967; A4216

== ENCOUNTER → 2025-06-24 | Outpatient (CLI) | payer MEDICAID, SELFPAY ==
--- OUTSIDE RECORDS SUMMARY | 2025-06-24 08:33 | XMS RPT_ITS | CCD ---
Author Organization [facility] Care Team Providers Care Strategic Planning Specialist Name Role Phone Dr. Allen Mitchell DO Primary Care Provider [phone] Dr. Alfredo Spicer DO Emergency Provider [phone] Dr. Alfredo Spicer DO Attending Provider Dr. Allen Mitchell DO Referring Provider [phone] Osmin Flores Attending Provider [phone] Allen Mitchell Referring Unavailable Osmin Flores Attending Unavailable Allen Mitchell Primary Care Unavailable Alfredo Spicer Attending Unavailable Allen Mitchell Primary Care Unavailable Allergies Allergy Classification Reported Allergen(s) Allergy Type Date of Onset Reaction(s) Facility (3 sources) Gentamicin Drug Allergy 06-06-2016 Other [facility] (3 sources) Vancomycin Drug Allergy 06-06-2016 Other [facility] (1 source) Gentamicin Sulfate (RETIREMENT) Drug Allergy 04-11-2025 [facility] Repository (1 source) Vancomycin Drug Allergy 04-11-2025 [facility] Repository Medications Current Medications Medication Drug Class(es) Dates Sig (Normalized) Sig (Original) cephalexin 500 mg oral capsule (1 source) Cephalosporin Antibacterial Start: 04-11-2025 take 1 capsule by mouth three times daily Cephalexin 500 mg capsule Active 500 mg PO THREE TIMES A DAY 15 0 April 11, 2025 12:00am enalapril maleate 10 mg oral tablet (3 sources) Angiotensin Converting Enzyme Inhibitor Start: 06-08-2016 take 1 tablet by mouth once daily Enalapril Maleate 10 MG tablet Active 10 mg PO DAILY June 08, 2016 12:00am escitalopram 5 mg oral tablet (3 sources) Serotonin Reuptake Inhibitor Start: 06-08-2016 take 1 tablet by mouth once daily Escitalopram Oxalate (Lexapro) 5 MG tablet Active 5 mg PO DAILY June 08, 2016 12:00am montelukast 10 mg oral tablet (2 sources) Leukotriene Receptor Antagonist Start: 07-03-2023 Montelukast 10 mg tablet Active mg PO July 03, 2023 12:00am pantoprazole 20 mg delayed release oral tablet (2 sources) Proton Pump Inhibitor Start: 07-03-2023 Pantoprazole 20 mg tablet,delayed release (DR/EC) Active mg PO July 03, 2023 12:00am ziprasidone 60 mg oral capsule (5 sources) Atypical Antipsychotic Start: 07-03-2023 Ziprasidone Hcl 60 mg capsule Active mg PO July 03, 2023 12:00am Start: 06-08-2016 End: 07-03-2023 take 1 capsule by mouth at bedtime Ziprasidone Hcl 40 MG capsule Discontinued 40 mg PO AT BEDTIME June 08, 2016 12:00am July 03, 2023 11:59am Completed/Discontinued Medications Medication Drug Class(es) Dates Sig (Normalized) Sig (Original) cetirizine hydrochloride 10 mg oral capsule (3 sources) Histamine-1 Receptor Antagonist Start: 06-08-2016 End: 07-03-2023 take 1 capsule by mouth once daily Cetirizine (Allergy Relief) 10 MG capsule Discontinued 10 mg PO DAILY June 08, 2016 12:00am July 03, 2023 11:59am lansoprazole 30 mg delayed release oral capsule (3 sources) Proton Pump Inhibitor Start: 06-08-2016 End: 07-03-2023 take 1 capsule by mouth once daily Lansoprazole 30 MG capsule,delayed release(DR/EC) Discontinued 30 mg PO DAILY June 08, 2016 12:00am July 03, 2023 11:59am melatonin 3 mg oral tablet (3 sources) Start: 06-08-2016 End: 07-03-2023 take 2 tablets by mouth at bedtime Melatonin 3 MG tablet Discontinued 6 mg PO AT BEDTIME June 08, 2016 12:00am July 03, 2023 11:59am Start: 06-08-2016 take 6 mg by mouth at bedtime Melatonin Active 6 MG PO AT BEDTIME June 08, 2016 12:00am ondansetron 4 mg disintegrating oral tablet (3 sources) Serotonin-3 Receptor Antagonist Start: 06-08-2016 End: 07-03-2023 take 1 tablet by mouth every eight hours as needed for nausea Ondansetron 4 MG tablet Discontinued 4 mg PO EVERY 8 HOURS NEEDED as needed for Nausea June 08, 2016 12:00am July 03, 2023 11:59am Problems Problem Classification Problem Date Documented Da te Episodic/Chronic Anxiety disorders (2 sources) Anxiety; Translations: [Anxiety disorder, unspecified] 03-25-2025 Chronic Immunizations and screening for infectious disease (3 sources) Contact with and (suspected) exposure to other viral communicable diseases; Translations: [Contact with or suspected exposure to other viral communicable disease] Onset: 04-11-2025 07-03-2023 Episodic Nonspecific chest pain (3 sources) Chest pain; Translations: [Chest pain, unspecified] Onset: 03-31-2025 03-25-2025 Episodic Results Test Name Value Interpretation Reference Range Facility Urgent Care Visit Reporton 0 04-11-2025 Urgent Care Visit Report [facility] [address], [address] [place] [address] OFFICE VISIT Date of Service: 04/11/25 MR#: [id number] Acct: [id number] Name: HAWA THORNTON Rep #: [id number] : 1990 Provider: TRINY Paniagua Age/Sex: 34/M Location: [facility] Status: Signed Intake Vital Signs 03/25/25 16:43 04/11/25 16:16 Height 5 ft 7 in BP 132/72 H Blood Pressure Location Lt brachial Position Sitting Respiration 16 Pulse 60 Pulse Source NIBP Temp 98.2 F Temp Source Oral Pulse Oximetry (%) 96 Oxygen Delivery Method room air Intake Visit Reasons: LACERATION ON L THUMB Chief Complaint: left thumb laceration Supervisor Nurse Required: No Is patient in pain?: Yes Allergies gentamicin Adverse Reaction (Verified 04/11/25 16:17) Other vancomycin Adverse Reaction (Verified 04/11/25 16:17) Other Have you fallen in the past year?: No Nurse's Note: left thumb laceration changing 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 active bleeding to knuckle noted. denies additional injuries, Tdap past due--pt willing to update today. [facility] Medical History (Updated 04/11/25 @ 16:48 by TRINY Jones) Laceration of left thumb Anxiety GERD (gastroesophageal reflux disease) Social History Smoking Status: Never smoker HPI HPI Chief Complaint: left thumb laceration Details: HAWA THORNTON, is a 34 M who presents to the office today for initial evaluation left thumb laceration at the dorsal IPJ occurring immediately prior to arrival here today. Patient notes while using his pocket knife to cut product at home he accidentally slipped and cut the same. He notes no loss of sensation or strength or function at injury site or distal to. PMH NC. Vnwuz-drkh-vwcdcec t. No jzaj-zpg-qwrrmns medications taken to assist. No other associated symptoms and no other alleviating/aggrav ating factors. ROS Const Constitutional: No other (As above) Exam Const General: cooperative, healthy appearing and no acute distress Orientation: alert and awake Resp Effort Inspection: normal respiratory effort and able to speak in complete sentences Cardio Rate: regular rate Pulses: radial pulses present Skin General: no rashes or lesions noted Trauma: laceration (2cm Left thumb; see procedure) Neuro General: patient alert and patient awake Cognition: normal cognition Speech: speech normal Motor: muscle tone normal throughout Sensory Exam: no sensory deficits noted Extrem General: normal to inspection Psych Appearance: grossly normal Mental Status: mental status grossly normal Mood: congruent mood Affect: normal affect Speech and Movement: speech and movement normal Attitude: cooperative Office Procedures Laceration Repair Procedure performed by: Osmin Cunningham Explained risks and benefits to parent: Yes Consent signed: No (Verbal consent given) Sedation: No Anesthesia: 2% lidocaine (Field block 1.5 mL) Irrigation: saline Preparation: chlorhexidine Wound exploration: none Deep closure: No Skin closure: nylon (4-0 Ethilon x 3 SI) Topical treatment: mupiricin Tetanus toxoid ordered: Yes Patient tolerated procedure: well Complications: No Immunizations Boostrix Tdap 2.5 Lf unit-8 mcg-5 Lf/0.5 mL intramuscular syringe Performing Provider: TRINY Jones Performing Location: [facility] Administered by: Vicki Lake on 04/11/25 16:40 Dose Route Admin Location Dispensed Lot Number Expiration Date NDC Man ufacturer 0.5 mL IM Left Deltoid 0.5 mL [id number] 06/09/27 72055-204-06 [employer] VIS Given Date VIS Provided VIS Publication Date 04/11/25 Single Vaccine 24 Eligibility Eligibility Date Funding Source Not Applicable Coding Level of Care Code Attention Finish Carpenter Diagnoses Laceration of left thumb S61.012A Comment [id number], [id number] Assessment and Plan Assessment and Plan (1) Laceration of left thumb: Status: Acute Plan: See procedure. Twice daily wound care as instructed today. Cephalexin as prescribed today per patient request. Supportive measures as instructed today. Follow-up with PCP or the [facility] clinic in approximately 10 days for reassessment and likely suture removal, sooner should symptoms only worsen or any other concerns develop. Patient states acknowledging understanding all the above. This note was generated with [employer] dictation software. It may contain incorrect words, spelling, and punctuation that were not noted in checking the note before signing. Orders: Orders Tdap Immunization Today Z23 - Encounter for immunization Medications: New cephalexin 500 mg PO TID 15 caps 0RF Clinical Quality Measures Falls Risk Screening/Assistiv e De (more content not included)... Normal [facility] 12 Lead EKGon 03-25-2025 12 Lead EKG [facility] Cardiovascular Services [address] [place] [address] 12 Lead EKG 03/25/25 1651 MR#: [id number] Acct: [id number] Name: HAWA THORNTON Rep #: [id number] : 1990 34 From: Darin Dos Santos MD Attending Dr: Status: DEP ER Ordering Dr: Alfredo Spicer DO Date: 03/25/25 Location: ED Sex: M C Admitted: Test Reason : CP Blood Pressure : */* mmHG Vent. Rate : 75 BPM Atrial Rate : 75 BPM P-R Int : 148 ms QRS Dur : 84 ms QT Int : 366 ms P-R-T Axes : 31 19 9 degrees QTcB Int : 408 ms Normal sinus rhythm with sinus arrhythmia Normal ECG Confirmed by BEKAH POWER, DARIN ([id number]), brands editor AUDREY CARMONA ([id number]) on 03/28/2025 7:47:36 AM Referred By: CHRISTO/KRYS Confirmed By: DARIN DOS SANTOS MD 03/28/25 0747 Date Darin Dos Santos MD CC: Dr. Alfredo Spicer, DO; Dr. Allen Mitchell DO Signed Normal [facility] Absolute lymphocyte countOrd ered By: Alfredo Spicer on 03-25-2025 Lymphocytes Auto (Unsp spec) [#/Vol] 1.11 10*3/uL 0.83-4.51 [facility] Absolute neutrophil countOrd ered By: Alfredo Spicer on 03-25-2025 Neutrophils (Bld) [#/Vol] 5.4 10*3/uL 2.0-7.7 [facility] Anion gap in Serum or Plasma Ordered By: Alfredo Spicer on 03-25-2025 Anion gap [Moles/Vol] 13 mmol/L 5-[address] [facility] Automated lymphocyte count a s percentage of total leukocytesOrdered By: Alfredo Spicer on 03-25-2025 Lymphocytes/100 WBC Auto (Unsp spec) 14.9 % Low 19-41 [facility] BUN/creatinine ratioOrdered By: Alfredo Spicer on 03-25-2025 Urea nitrogen/Creatinine [Mass ratio] 7.5 mg/mg Low 10-20 [facility] Basic Metabolic Profile (BMP )on 03-25-2025 BUN/CRE 7.5 RATIO Low 10-20 [facility] Comment on above: Performed By: #### L 501.4021, L300.8000, L500.2500, L100.0100 #### [facility] [address] [place], [address] Calcium [Mass/Vol] 9.8 mg/dL Normal 7.6-11.0 [facility] Comment on above: Performed By: #### L 501.4021, L300.8000, L500.2500, L100.0100 #### [facility] [address] [place], [address] Chloride [Moles/Vol] 104 mmol/L Normal 98-108 [facility] Comment on above: Performed By: #### L 501.4021, L300.8000, L500.2500, L100.0100 #### [facility] [address] [place], [address] CO2 [Moles/Vol] 22.3 mmol/L Normal 21.0-32.0 [facility] Comment on above: Performed By: #### L 501.4021, L300.8000, L500.2500, L100.0100 #### [facility] [address] [place], [address] Creatinine [Mass/Vol] 1.02 mg/dL Normal 0.70-1.[address] [facility] Comment on above: Performed By: #### L 501.4021, L300.8000, L500.2500, L100.0100 #### [facility] [address] [place], [address] ECRCL 109.15 ml/min Normal 50-250 [facility] Comment on above: Performed By: #### L 501.4021, L300.8000, L500.2500, L100.0100 #### [facility] [address] [place], [address] GAP 13 Normal 5-15 [facility] Comment on above: Performed By: #### L 501.4021, L300.8000, L500.2500, L100.0100 #### [facility] [address] [place], [address] GFR/1.73 sq M.predicted among non-blacks MDRD (S/P/Bld) [Vol rate/Area] 99 mL/min/{1.73_m2} Normal >60 [facility] Comment on above: Result Comment: mL/m in/1.73m2 CKD-EPI Creatinine Equation (2020) Performed By: #### L 501.4021, L300.8000, L500.2500, L100.0100 #### [facility] [address] [place], [address] Glucose [Mass/Vol] 93 mg/dL Normal 70-99 [facility] Comment on above: Performed By: #### L 501.4021, L300.8000, L500.2500, L100.0100 #### [facility] [address] [place], [address] Potassium [Moles/Vol] 4.2 mmol/L Normal 3.3-5.[address] [facility] Comment on above: Performed By: #### L 501.4021, L300.8000, L500.2500, L100.0100 #### [facility] [address] [place], [address] Sodium [Moles/Vol] 140 mmol/L Normal 133-145 [facility] Comment on above: Performed By: #### L 501.4021, L300.8000, L500.2500, L100.0100 #### [facility] [address] [place], [address] Urea nitrogen [Mass/Vol] 8 mg/dL Normal 4-19 [facility] Comment on above: Performed By: #### L 501.4021, L300.8000, L500.2500, L100.0100 #### [facility] [address] [place], [address] Basophil percentageOrdered B y: Alfredo Spicer on 03-25-2025 Basophils/100 WBC (Bld) 0.5 % 0-1 [facility] CBC W/Diff, Automatedon 03-12 Absolute Lymph 1.11 X10 3/uL Normal 0.83-4.51 [facility] Comment on above: Performed By: #### L 501.4021, L300.8000, L500.2500, L100.0100 #### [facility] [address] [place], [address] Absolute Neut 5.4 X10 3/uL Normal 2.0-7.7 [facility] Comment on above: Performed By: #### L 501.4021, L300.8000, L500.2500, L100.0100 #### [facility] [address] [place], [address] Basophils/100 WBC (Bld) 0.5 % Normal 0-1 [facility] Comment on above: Performed By: #### L 501.4021, L300.8000, L500.2500, L100.0100 #### [facility] [address] [place], [address] Eosinophils/100 WBC (Bld) 0.3 % Normal 0-5 [facility] Comment on above: Performed By: #### L 501.4021, L300.8000, L500.2500, L100.0100 #### [facility] [address] [place], [address] Erythrocyte distribution width (RBC) [Ratio] 12.0 % Normal 11.6-14.6 [facility] Comment on above: Performed By: #### L 501.4021, L300.8000, L500.2500, L100.0100 #### [facility] [address] [place], [address] Hematocrit (Bld) [Volume fraction] 43.5 % Normal 40-54 [facility] Comment on above: Performed By: #### L 501.4021, L300.8000, L500.2500, L100.0100 #### [facility] [address] [place], [address] Hemoglobin (Bld) [Mass/Vol] 15.1 g/dL Normal 13.0-16.5 [facility] Comment on above: Performed By: #### L 501.4021, L300.8000, L500.2500, L100.0100 #### [facility] [address] [place], [address] IG% 0.400 Normal 0.0-0.9 [facility] Comment on above: Result Comment: IG% - Immature Granulocytes (promyelocytes, myelocytes and metamyelocytes) > 1% indicates that a LEFT SHIFT is Present. Performed By: #### L 501.4021, L300.8000, L500.2500, L100.0100 #### [facility] [address] [place], [address] Lymphocytes/100 WBC (Bld) 14.9 % Low 19-41 [facility] Comment on above: Performed By: #### L 501.4021, L300.8000, L500.2500, L100.0100 #### [facility] [address] [place], [address] MCH (RBC) [Entitic mass] 30.4 pg Normal 27.0-32.0 [facility] Comment on above: Performed By: #### L 501.4021, L300.8000, L500.2500, L100.0100 #### [facility] [address] [place], [address] MCHC (RBC) [Mass/Vol] 34.7 g/dL Normal 32-[address] [facility] Comment on above: Performed By: #### L 501.4021, L300.8000, L500.2500, L100.0100 #### [facility] [address] [place], [address] MCV (RBC) [Entitic vol] 87.5 fL Normal 80-94 [facility] Comment on above: Performed By: #### L 501.4021, L300.8000, L500.2500, L100.0100 #### [facility] [address] [place], [address] Monocytes/100 WBC (Bld) 11.6 % High 0-10 [facility] Comment on above: Performed By: #### L 501.4021, L300.8000, L500.2500, L100.0100 #### [facility] [address] [place], [address] Neutrophils/100 WBC (Bld) 72.3 % High 47-70 [facility] Comment on above: Performed By: #### L 501.4021, L300.8000, L500.2500, L100.0100 #### [facility] [address] [place], [address] Nucleated RBC (Bld) [#/Vol] 0 10*3/uL Normal 0-5 [facility] Comment on above: Performed By: #### L 501.4021, L300.8000, L500.2500, L100.0100 #### [facility] [address] [place], [address] Platelet mean volume (Bld) [Entitic vol] 9.7 fL Normal 6.2-12.0 [facility] Comment on above: Performed By: #### L 501.4021, L300.8000, L500.2500, L100.0100 #### [facility] [address] [place], [address] Platelets (Bld) [#/Vol] 327 10*3/uL Normal 150-450 [facility] Comment on above: Performed By: #### L 501.4021, L300.8000, L500.2500, L100.0100 #### [facility] [address] [place], [address] RBC (Bld) [#/Vol] 4.97 10*6/uL Normal 4.6-6.2 [facility] Comment on above: Performed By: #### L 501.4021, L300.8000, L500.2500, L100.0100 #### [facility] [address] [place], [address] RDW SD 38.5 fl Normal 35.1-43.9 [facility] Comment on above: Performed By: #### L 501.4021, L300.8000, L500.2500, L100.0100 #### [facility] [address] [place], [address] WBC (Bld) [#/Vol] 7.4 10*3/uL Normal 4.4-11.0 [facility] Comment on above: Performed By: #### L 501.4021, L300.8000, L500.2500, L100.0100 #### [facility] [address] [place], [address] CTA Chest W/WO Contraston CTA Chest W/WO Contrast [facility] Imaging Services [address] [address] CTA Chest W/WO Contrast MR#: [id number] Acct: [id number] Name: HAWA THORNTON Rep #: [id number] : 1990 M 34 From: Kate Mccauley nd, MD PCP: Dr. Allen Mitchell DO Status: REG ER Study: CTA Chest W/WO Contrast Date of Exam: 03/25/25 Exam# [id number] Ordering Dr: Alfredo Spicer DO PROCEDURE: CTA CHEST W/WO CONTRAST 03/25/2025 REASON FOR EXAM: PULMONARY EMBOLISM TECHNIQUE: CTA axial imaging of the chest with intravenous contrast. Coronal and Sagittal reconstruction series were provided. 3D, 3D post processing, 3D reconstructions, Maximum intensity projection (MIPs) Volume rendering and Shaded surface rendering was provided. PATIENT PREPARATION: Per protocol CONTRAST: Isovue 370 VOLUME: 100mL One or more dose reduction techniques were used (e.g., Automated exposure control, adjustment of the mA and/or kV according to patient size, use of iterative reconstruction technique). RADIATION DOSE SUMMARY: CTDlvol: 24 mGy DLP: 500 mGycm COMPARISON: Same day chest radiograph. FINDINGS: Hardware: None. Lymph nodes: No axillary, mediastinal or hilar lymphadenopathy. Heart: The heart is normal in size without pericardial effusion. The great vessels are normal in caliber. Pulmonary Vessels: No large central pulmonary emboli are identified. Contrast timing is suboptimal for evaluation of more distal branches. Lungs and Airways: The central airways are patent. No suspicious pulmonary nodule. No pleural effusion or pneumothorax. Upper Abdomen: Visualized portions of the upper abdominal viscera are unremarkable. Bones: Bone windows are unremarkable. CT/CTA Chest W/WO Contrast IMPRESSION: LIMITED. NO LARGE CENTRAL PULMONARY EMBOLI. Reading Location: [facility] CC: Dr. Alfredo Spicer DO; Dr. Allen Mitchell DO Stove Fitter: Signed Normal [facility] Carbon dioxide, total [Moles /volume] in Central venous bloodOrdered By: Alfredo Spicer on 03-25-2025 CO2 [Moles/Vol] 22.3 mmol/L 21.0-32.0 [facility] Chest 1 View (Portable)on Chest 1 View (Portable) [facility] Imaging Services [address] [place] [address] Chest 1 View (Portable) MR#: [id number] Acct: [id number] Name: HAWA THORNTON Rep #: [id number] : 1990 M 34 From: Kate Mccauley nd, MD PCP: Dr. Allen Mitchell DO Status: REG ER Study: Chest 1 View (Portable) Date of Exam: 03/25/25 Exam# [id number] Ordering Dr: Alfredo Spicer DO PROCEDURE: CHEST 1 VIEW (PORTABLE) 03/25/2025 REASON FOR EXAM: CHEST PAIN TECHNIQUE: Frontal view of the chest. COMPARISON: None. FINDINGS: Hardware: None. Heart: The heart size is normal. Lungs: No focal consolidation, pleural effusion or pneumothorax. Bones: The bones are unremarkable. RAD/Chest 1 View (Portable) IMPRESSION: Negative Chest. Reading Location: [facility] CC: Dr. Alfredo Spicer DO; Dr. Allen Mitchell DO Stove Fitter: Signed Normal [facility] Chloride assayOrdered By: Arnaldo Spicer on 03-25-2025 Chloride [Moles/Vol] 104 mmol/L 98-108 [facility] D-Dimer Quantitative (DVT/PE )on 03-25-2025 D-DIMER QUANT 3.43 FEU/ug/m Invalid Interpretation Code 0.27-0.49 [facility] Comment on above: Result Comment: D-Di festus ELEVATED (>0.49): Additional studies and clinical assessments are indicated to conclude diagnosis of: Deep Vein Thrombosis (DVT) or Pulmonary Embolism (PE) Performed By: #### L 501.4021, L300.8000, L500.2500, L100.0100 #### [facility] [address], [address] Emergency Department Summary on 03-25-2025 Emergency Department Summary [facility] Medical Records Department [address] [place] [address] Emergency Department Summary 03/25/25 MR#: [id number] Acct: [id number] Name: HAWA THORNTON Rep #: [id number] : 1990 34 From: Alfredo Spicer DO PCP: Dr. Allen Mitchell DO Status:DEP ER Location: ED HPI History of Present Illness Chief Complaint: Chest Pain Informant: patient and parent (Mother) Narrative Narrative: 34-year-old male presenting to the emergency room with an intermittent chest pressure on the left side of his chest. Patient states that current world events started his anxiety to be higher than normal. He notes a near constant but intermittent pressure-like sensation just inferior to his left pectoralis muscle. Nothing seems to make it better or worse. When it comes on he feels some discomfort in his throat. Does have a history of GERD is on pantoprazole. He drove to [facility] near [place] 2 weeks ago. He denies any leg swelling. No difficulty taking a deep breath/pleuritic chest pain. He denies any cough or fever. No rashes. He notes the pain does not radiate towards the back. No arm symptoms. PFSH PFS Medical History (Updated 03/25/25 @ 19:[address] Alfredo Spicer, ) Anxiety GERD (gastroesophageal reflux disease) Home Medications ???Medication ???Instructions ???Recorded ???Last Taken ???Type enalapril maleate 10 mg tablet 10 mg PO DAILY 06/08/16 Unknown Hi story escitalopram oxalate 5 mg tablet 5 mg PO DAILY 06/08/16 Unknown His tory (Lexapro) montelukast 10 mg tablet mg PO 07/03/23 Unknown History pantoprazole 20 mg tablet,delayed mg PO 07/03/23 Unknown History release ziprasidone HCl 60 mg capsule mg PO 07/03/23 Unknown History Allergy/AdvReac Type Severity Reaction Status Date / Time gentamicin AdvReac Other Verified 03/25/25 16:43 vancomycin AdvReac Other Verified 03/25/25 16:43 Social History Smoking Status: Never smoker ROS ROS ED Constitutional Constitutional ED: Denies chills or weight loss Eyes Eyes: Denies change in vision or diplopia ENT ENT ED: Denies ear pain, rhinorrhea or sore throat Cardiovascular Cardiovascular: Reports as per HPI and chest pain; Denies orthopnea, palpitations or racing heartbeat Respiratory/Chest Respiratory/Chest: Denies cough, dyspnea or orthopnea Gastrointestinal Gastrointestinal: Denies abdominal pain, diarrhea, nausea or vomiting Genitourinary Genitourinary ED: Denies dysuria, hematuria or urinary frequency Musculoskeletal Musculoskeletal: Denies arthralgias or myalgias Integumentary Denies abscess or rash Neurologic Neurologic: Denies headache(s) or weakness Psychiatric Psychiatric: Denies anxiety, depression, suicidal ideation or suicidal thoughts Endocrine Endocrinology: Denies polydipsia, polyphagia or polyuria Allergic/Immunolog ic Allergic/Immunolog ic ED: Denies mouth swelling, tongue swelling or urticaria EXAM Physical Exam Const Vital Signs: 03/25/25 16:43 03/25/25 17:59 03/25/25 18:03 Temperature 98 F Temperature Source Temporal Pulse Rate 81 69 Respiratory Rate 20 H 18 Respiratory Effort Normal Non-Labored Blood Pressure 167/86 H 136/86 H Blood Pressure Mean 113 102 Pulse Ox 97 98 Oxygen Delivery Method Room Air Room Air 03/25/25 18:38 Temperature Temperature Source Pulse Rate 74 Respiratory Rate 18 Respiratory Effort Blood Pressure 124/77 H Blood Pressure Mean 92 Pulse Ox 97 Oxygen Delivery Method Room Air Positive well nourished and well developed General Appearance ED: well developed HEENT Reports normocephalic, head/scalp atraumatic and moist mucous membranes Eyes PERRL and EOMs intact bilaterally Neck no lymphadenopathy, supple and no JVD Chest Wall inspection of chest normal and palpation of chest normal Resp normal respiratory effort and clear to auscultation bilaterally Cardio regular rate, regular rhythm and no murmurs Peripheral Pulses: pulses 2+ throughout GI normal to inspection, nondistended, normoactive bowel sounds and non-tender Palpation: soft Back/Spine no CVA tenderness and normal ROM Extremity normal to inspection General Extremety ED: Negative for edema General Extremity: Negative for edema Neuro oriented x3 and CN's II-XII intact bilaterally Sensorium / Orientation: alert Motor Exam: strength 5/5 throughout Psych mental status grossly normal Mood Affect: Negative for depressed or tearful Skin no rashes or lesions noted and no wounds MDM MDM MDM Narrative Medical decision making narrative: Differential diagnosis includes but not limited to acute coronary syndrome pleural effusion pulmonary embolism aortic dissection pneumothorax GERD hiat (more content not included)... Normal [facility] Eosinophil percentageOrdered By: Alfredo Spicer on 03-25-2025 Eosinophils/100 WBC (Bld) 0.3 % 0-5 [facility] Erythrocyte distribution wid th ratioOrdered By: Alfredo Spicer on 03-25-2025 Erythrocyte distribution width (RBC) [Ratio] 12.0 % 11.6-14.6 [facility] Erythrocyte distribution wid th standard deviationOrdered By: Alfredo Spicer on 03-25-2025 Erythrocyte distribution width (RBC) [Ratio] 38.5 fl 35.1-43.9 [facility] Glomerular filtration rate ( GFR) estimation/1.73 sq m using serum, plasma, or whole bOrdered By: Alfredo Spicer on 03-25-2025 GFR/1.73 sq M.predicted among non-blacks MDRD (S/P/Bld) [Vol rate/Area] 99 mL/min/{1.73_m2} >60 [facility] Comment on above: mL/min/1.73m2 CKD-EP I Creatinine Equation (2020) Hematocrit Auto (Bld) [Volum e fraction]Ordered By: Alfredo Spicer on 03-25-2025 Hematocrit (Bld) [Volume fraction] 43.5 % 40-54 [facility] Hemoglobin measurementOrdere d By: Alfredo Spicer on 03-25-2025 Hemoglobin (Bld) [Mass/Vol] 15.1 g/dL 13.0-16.5 [facility] Immature granulocytes/100 WB C Auto (Bld)Ordered By: Alfredo Spicer on 03-25-2025 Immature granulocytes/100 WBC (Bld) 0.400 % 0.0-0.9 [facility] Comment on above: IG% - Immature Granu locytes (promyelocytes, myelocytes and metamyelocytes) > 1% indicates that a LEFT SHIFT is Present. L501.4021on 03-25-2025 Trop T High Sen 6 ng/L Normal <=22 [facility] Comment on above: Performed By: #### L 501.4021, L300.8000, L500.2500, L100.0100 #### [facility] [address] [place], [address] MCV (mean corpuscular volume ) determinationOrdered By: Alfredo Spicer on 03-25-2025 MCV (RBC) [Entitic vol] 87.5 fL 80-94 [facility] Mean corpuscular hemoglobin (MCH) determinationOrdered By: Alfredo Spicer on 03-25-2025 MCH (RBC) [Entitic mass] 30.4 pg 27.0-32.0 [facility] Mean corpuscular hemoglobin concentration (MCHC) determinationOrdered By: lAfredo Spicer on 03-25-2025 MCHC (RBC) [Mass/Vol] 34.7 g/dL 32-[address] [facility] Mean platelet volume determi nationOrdered By: Alfredo Spicer on 03-25-2025 Platelet mean volume (Bld) [Entitic vol] 9.7 fL 6.2-12.0 [facility] Monocyte percentageOrdered B y: Alfredo Spicer on 03-25-2025 Monocytes/100 WBC (Bld) 11.6 % High 0-10 [facility] Neutrophil percentageOrdered By: Alfredo Spicer on 03-25-2025 Neutrophils/100 WBC (Bld) 72.3 % High 47-70 [facility] Nucleated red blood cell per centageOrdered By: Alfredo Spicer on 03-25-2025 Nucleated RBC/100 WBC (Bld) [Ratio] 0 % 0-5 [facility] Platelet countOrdered By: Arnaldo Spicer on 03-25-2025 Platelets (Bld) [#/Vol] 327 10*3/uL 150-450 [facility] Potassium measurement (mass/ volume)Ordered By: Alfredo Spicer on 03-25-2025 Potassium (Unsp spec) [Mass/Vol] 4.2 mmol/L 3.3-5.1 [facility] RBC Auto (Bld) [#/Vol]Ordere d By: Alfredo Spicer on 03-25-2025 RBC (Bld) [#/Vol] 4.97 10*6/uL 4.6-6.2 [facility] Serum creatinine measurement (mass/volume)Ordered By: Alfredo Spicer on 03-25-2025 Creatinine [Mass/Vol] 1.02 mg/dL 0.70-1.[address] [facility] Serum glucose measurement (m ass/volume)Ordered By: Alfredo Spicer on 03-25-2025 Glucose [Mass/Vol] 93 mg/dL 70-99 [facility] Serum or plasma calcium asher urement (mass/volume)Ordered By: Alfredo Spicer on 03-25-2025 Calcium [Mass/Vol] 9.8 mg/dL 7.6-11.0 [facility] Serum or plasma urea nitroge n measurement (mass/volume)Ordered By: Alfredo Spicer on 03-25-2025 Urea nitrogen [Mass/Vol] 8 mg/dL 4-19 [facility] Sodium levelOrdered By: Bright Spicer on 03-25-2025 Sodium [Moles/Vol] 140 mmol/L 133-145 [facility] Troponin T.cardiac [Mass/vol ume] in Serum or Plasma by High sensitivity methodOrdered By: Alfredo Spicer on 03-25-2025 Troponin T.cardiac High sensitivity method [Mass/Vol] 6 ng/L <22 [facility] White blood cell (WBC) count Ordered By: Alfredo Spicer on 03-25-2025 WBC (Bld) [#/Vol] 7.4 10*3/uL 4.4-11.0 [facility] Basophil percentageOrdered B y: Dr. Banks on 03-05-2023 Bilirubin [Mass/Vol] 0.50 mg/dL 0.20-1.00 [facility] Comment on above: For patients on eltr ombopag therapy, use of Dimension [place] TBIL is not recommended. Chloride [Moles/Vol] 108 mmol/L 98-107 [facility] Cholesterol [Mass/Vol] 163 mg/dL <200 [facility] Comment on above: <200 mg/dL Desirable 200-240 mg/dL Borderline >240 mg/dL High Risk Glucose [Mass/Vol] 101 mg/dL 74-106 [facility] Comment on above: Fasting Glucose resu lt from 100 to 125 mg/dL suggests IMPAIRED HOMEOSTASIS per A.D.A. criteria. Potassium [Moles/Vol] 4.0 mmol/L 3.5-5.[address] [facility] Protein [Mass/Vol] 7.4 g/dL 6.4-8.2 [facility] Sodium [Moles/Vol] 139 mmol/L 136-145 [facility] Triglyceride [Mass/Vol] 75 mg/dL <199 [facility] Comment on above: The drugs N-Acetylcy steine and Metamizole may falsely depress this assay.Serum Triglycerides Reference Interval Normal <150 mg/dL Borderline high 150 - 199 mg/dL High 200 - 499 mg/dL Very High > or = 500 mg/dL WBC (Bld) [#/Vol] 5.8 10*3/uL 4.4-11.0 [facility] Blood erythrocytes count (nu mber/volume)Ordered By: Dr. Banks on 03-05-2023 RBC (Bld) [#/Vol] 5.01 10*6/uL 4.6-6.2 [facility] Blood hemoglobin measurement (mass/volume)Ordered By: Dr. Banks on 03-05-2023 Hemoglobin (Bld) [Mass/Vol] 15.4 g/dL 13.0-16.5 [facility] Blood platelet mean volumeOr dered By: Dr. Banks on 03-05-2023 Platelet mean volume (Bld) [Entitic vol] 9.8 fL 6.2-12.0 [facility] Determination of erythrocyte mean corpuscular volume (MCV)Ordered By: Dr. Banks on 03-05-2023 MCV (RBC) [Entitic vol] 88.0 fL 80-94 [facility] Hematocrit Auto (Bld) [Volum e fraction]Ordered By: Dr. Banks on 03-05-2023 Hematocrit (Bld) [Volume fraction] 44.1 % 40-54 [facility] - Chemistry and C hemistry - challengeOrdered By: Dr. Banks on 03-05-2023 ALP [Catalytic activity/Vol] 82 U/L 45-117 [facility] ALT [Catalytic activity/Vol] 34 U/L 16-61 [facility] CO2 [Moles/Vol] 26.0 mmol/L 21.0-32.0 [facility] Globulin (S) [Mass/Vol] 3.3 g/dL 2.2-4.2 [facility] Urea nitrogen/Creatinine [Mass ratio] 14.8 mg/mg 10-20 [facility] - Hematology and Cell countsOrdered By: Dr. Banks on 03-05-2023 Erythrocyte distribution width (RBC) [Entitic vol] 38.5 fL 35.1-43.9 [facility] Erythrocyte distribution width (RBC) [Ratio] 11.9 % 11.6-14.6 [facility] MCH (RBC) [Entitic mass] 30.7 pg 27.0-32.0 [facility] MCHC Auto (RBC) [Mass/Vol]Or dered By: Dr. Banks on 03-05-2023 MCHC (RBC) [Mass/Vol] 34.9 g/dL 32-[address] [facility] No Panel InformationOrdered By: Dr. Banks on 03-05-2023 Estimated GFR (MDRD) Amer 95 mL/min >60 [facility] Comment on above: GFR Calc Estimated GFR (MDRD) Non-Af Amer 78 mL/min >60 [facility] Comment on above: Non- GFR Calc Platelets bldOrdered By: Dr. Banks on 03-05-2023 Platelets (Bld) [#/Vol] 295 10*3/uL 150-450 [facility] Serum or plasma albumin asher urement (mass/volume)Ordered By: Dr. Banks on 03-05-2023 Albumin [Mass/Vol] 4.1 g/dL 3.2-5.0 [facility] Serum or plasma albumin/glob ulin mass ratioOrdered By: Dr. Banks on 03-05-2023 Albumin/Globulin [Mass ratio] 1.2 {ratio} 0.9-2.4 [facility] Serum or plasma calcium asher urement (mass/volume)Ordered By: Dr. Banks on 03-05-2023 Calcium [Mass/Vol] 9.0 mg/dL 8.5-10.1 [facility] Serum or plasma cholesterol in HDL measurement (mass/volume)Ordered By: Dr. Banks on 03-05-2023 Cholesterol in HDL [Mass/Vol] 35 mg/dL >40 [facility] Comment on above: The drugs N-Acetylcy steine and Metamizole may falsely depress this assay. Reference Range HDL <40 mg/dL Low HDL Cholesterol HDL >or= 60 mg/dL High HDL Cholesterol Serum or plasma cholesterol in VLDL measurement (mass/volume)Ordered By: Dr. Banks on 03-05-2023 Cholesterol in VLDL [Mass/Vol] 15 mg/dL 5-40 [facility] Serum or plasma creatinine m easurement (mass/volume)Ordered By: Dr. Banks on 03-05-2023 Creatinine [Mass/Vol] 1.15 mg/dL 0.70-1.[address] [facility] Comment on above: The validity of the calculated GFR & GFRAA in patients over 70 years has not been determined. Clinical correlation is essential. Serum or plasma low density lipoprotein (LDL) cholesterol measurement (mass/volume)Ordered By: Dr. Banks on 03-05-2023 Cholesterol in LDL [Mass/Vol] 113 mg/dL 0-130 [facility] Serum or plasma urea nitroge n measurement (mass/volume)Ordered By: Dr. Banks on 03-05-2023 Urea nitrogen [Mass/Vol] 17 mg/dL 7-18 [facility] Thin prep Papanicolaou smear with manual screeningOrdered By: Dr. Banks on 03-05-2023 Thin prep Papanicolaou smear with manual screening 18 U/L 15-37 [facility] Thin prep Papanicolaou smear with manual screening 5 5-15 [facility] Whole blood hemoglobin A1c/t otal hemoglobin ratio (mass fraction)Ordered By: Dr. Banks on 03-05-2023 HbA1c (Bld) [Mass fraction] 5.0 % 3.8-5.6 [facility] Comment on above: Normal < 5.7 % Predi abetic 5.7 - 6.4 % Diabetic >or= 6.5 % Please note range changes. Vital Signs Date Time Vital Sign Value Performing Clinician Faci lity 04-11-2025 16:16-0400 Body temperature 98.2 [degF] Dr. Allen Mitchell DO Work Phone: [facility] 04-11-2025 16:16-0400 Diastolic blood pressure 72 mm[Hg] Dr. Allen Mitchell DO Work Phone: [facility] 04-11-2025 16:16-0400 Heart rate 60 /min Dr. Allen Mitchell DO Work Phone: [facility] 04-11-2025 16:16-0400 Respiratory rate 16 /min Dr. Allen Mitchell DO Work Phone: [facility] 04-11-2025 16:16-0400 SaO2% (BldA) [Mass fraction] 96 % Dr. Allen Mitchell DO Work Phone: [facility] 04-11-2025 16:16-0400 Systolic blood pressure 132 mm[Hg] Dr. Allen Mitchell DO Work Phone: [facility] 03-25-2025 19:37-0400 Body temperature 97.8 [degF] Dr. Allen Mitchell DO Work Phone: [facility] 03-25-2025 19:37-0400 Diastolic blood pressure 77 mm[Hg] Dr. Allen Mitchell DO Work Phone: [facility] 03-25-2025 19:37-0400 Heart rate 73 /min Dr. Allen iMtchell DO Work Phone: [facility] 03-25-2025 19:37-0400 Respiratory rate 18 /min Dr. Allen Mitchell DO Work Phone: [facility] 03-25-2025 19:37-0400 SaO2% (BldA) [Mass fraction] 97 % Dr. Allen Mitchell DO Work Phone: [facility] 03-25-2025 19:37-0400 Systolic blood pressure 124 mm[Hg] Dr. Allen Mitchell DO Work Phone: [facility] 03-25-2025 16:43-0400 Body height 170.[address] Allen Mitchell DO Work Phone: [facility] 03-25-2025 16:43-0400 Body mass index (BMI) [Ratio] 31 kg/m2 Dr. Allen Mitchell DO Work Phone: [facility] 03-25-2025 16:43-0400 Body weight 89.[address] Allen Mitchell DO Work Phone: [facility] Encounters Encounter Date Encounter Type Care Provider Facility Start: 04-11-2025 End: 04-11-2025 Patient encounter procedure Osmin [place] [facility] Work Phone: Start: 04-11-2025 End: 04-11-[address] Allen Mitchell DO Work Phone: [facility] Start: 03-25-2025 End: 03-25-2025 Emergency department patient visit Dr. Allen Mitchell DO Work Phone: -Emergency Department Work Phone: Start: 03-05-2023 End: 03-05-2023 ambulatory [facility] Work Phone: Start: 03-05-2023 End: 03-05-2023 Patient encounter procedure [facility]Laboratory Procedures Date Procedure Procedure Detail Performing Clinician Start: 03-25-2025 CT angiography of ch est with contrast Dr. Allen Mitchell DO Work Phone: Start: 03-25-2025 D-dimer assay, quantitative Dr. Allen Mitchell DO Work Phone: Comment on above: D-Dimer ELEVATED (>0 .49): Additional studies and clinicalassessments are indicated to conclude diagnosis of:Deep Vein Thrombosis (DVT) or Pulmonary Embolism (PE) Start: 03-25-[address] Allen Mitchell DO Work Phone: Start: 03-25-2025 Plain chest X-ray Dr. Scooter Mitchell DO Work Phone: Plan of Treatment Date Care Activity Detail Author Start: 03-25-2025 [facility] Start: 03-25-2025 [facility] Patient Education ED Chest Pain, Noncardi ac [facility] Work Phone: Patient referral [facility] Work Phone: Immunizations Immunization Date Immunization Notes Care Provider Gregory [email or web address] 04-11-2025 tetanus toxoid, redu geovani diphtheria toxoid, and acellular pertussis vaccine, adsorbed Dr. Allen Mitchell DO Work Phone: [facility] Payers Date Payer Category Payer Self-pay [id number] 2012 Unknown [id number] Unknown [employer] [id number] Unknown [id number] Unknown [id number] Social History Date Type Detail Facility Start: 06-08-2016 Tobacco smoking stat [facility] Unknown if ever smoked [facility] Start: 1990 Sex Assigned At Male [facility]: [facility] Mental Status Date Assessment Result Facility 03-25-2025 Cognitive function Level Of Cons ciousness Awake;Alert;Appropriate;Follow s Commands [facility] Work Phone: Radiology Diagnostic study note 03-25-2025 Note Date & Type Note Facility 03-25-2025 Radiology Diagnostic study note [facility] Imaging Services [address] [place] [address] CTA Chest W/WO Contrast MR#: [id number] Acct: [id number] Name: HAWA THORNTON Rep #: [id number] : 1990 M 34 From: Rossi Wellington MD PCP: Dr. Allen Mitchell DO Status: REG ER Study:CTA Chest W/WO Contrast Date of Exam: 03/25/25 Exam# [id number] Ordering Dr: Em Spicer DO PROCEDURE: CTA CHEST W/WO CONTRAST 03/25/2025 REASON FOR EXAM: PULMONARY EMBOLISM TECHNIQUE: CTA axial imaging of the chest with intravenous contrast. Coronal and Sagittal reconstruction series were provided. 3D, 3D post processing, 3D reconstructions, Maximum intensity projection (MIPs) Volume rendering and Shaded surface rendering was provided. PATIENT PREPARATION: Per protocol CONTRAST: Isovue 370 VOLUME: 100mL One or more dose reduction techniques were used (e.g., Automated exposure control, adjustment of the mA and/or kV according to patient size, use of iterative reconstruction technique). RADIATION DOSE SUMMARY: CTDlvol: 24 mGy DLP: 500 mGycm COMPARISON: Same day chest radiograph. FINDINGS: Hardware: None. Lymph nodes: No axillary, mediastinal or hilar lymphadenopathy. Heart: The heart is normal in size without pericardial effusion. The great vessels are normal in caliber. Pulmonary Vessels: No large central pulmonary emboli are identified. Contrast timing is suboptimal for evaluation of more distal branches. Lungs and Airways: The central airways are patent. No suspicious pulmonary nodule. No pleural effusion or pneumothorax. Upper Abdomen: Visualized portions of the upper abdominal viscera are unremarkable. Bones: Bone windows are unremarkable. CT/CTA Chest W/WO Contrast IMPRESSION: LIMITED. NO LARGE CENTRAL PULMONARY EMBOLI. Reading Location: [facility] CC: Dr. Alfredo Spicer DO; Dr. Allen Mitchell DO ~ Stove Fitter: Signed [facility] Radiology Diagnostic study note 03-25-2025 Note Date & Type Note Facility 03-25-2025 Radiology Diagnostic study note [facility] Imaging Services [address] [place] [address] [id number] Chest 1 View (Portable) MR#: [id number] Acct: [id number] Name: HAWA THORNTON Rep #: [id number] : 1990 M 34 From: Rossi Wellington MD PCP: Dr. Allen Mitchell DO Status: REG ER Study:Chest 1 View (Portable) Date of Exam: 03/25/25 Exam# [id number] Ordering Dr: Em Spicer DO PROCEDURE: CHEST 1 VIEW (PORTABLE) 03/25/2025 REASON FOR EXAM: CHEST PAIN TECHNIQUE: Frontal view of the chest. COMPARISON: None. FINDINGS: Hardware: None. Heart: The heart size is normal. Lungs: No focal consolidation, pleural effusion or pneumothorax. Bones: The bones are unremarkable. RAD/Chest 1 View (Portable) IMPRESSION: Negative Chest. Reading Location: [facility] CC: Dr. Alfredo Spicer DO; Dr. Allen Mitchell DO ~ Stove Fitter: Signed [facility] Evaluation note Note Date & Type Note Facility Evaluation note No assessment information availa ble [facility] Work Phone: Reason for referral (narrative) Note Date & Type Note Facility Reason for referral (narrative) No reason for referral information available [facility] Work Phone: Advance Directives No Advanced Directives Records Found Advance Directive Response Recorded Date/ Time Living Will No June 08 6 6:56am Power of Culinary Artist No June 08 016 6:56am Advance Directive Response Recorded Date/ Time Do you have a Healthcare Power of Culinary Artist? No March 25, 2025 5:58pm Chief Complaint and Reason for Visit Chief Complaint Admit Date CHEST PAIN March 25, 2025 4:42 pm Chief Complaint Admit Date CHEST PAIN March 25, 2025 4:42 pm LACERATION ON L THUMB April 11, 2025 4:1 0pm Summary Purpose Family History No Family History [...] MD Attending Provider, Referring Pro vider Active Team Status: Active Member Role Status Dates Dr. Allen Mitchell DO Primary Care Provider Active Team Status: Inactive Member Role Status Dates Dr. Allen Mitchell DO Primary Care Provider Active Start: March 25, 2025 End: March 25, 2025 Dr. Alfredo Spicer DO Emergency Provider Active Start: March 25, 2025 End: March 25, 2025 Team Status: Active Member Role/Relationship Status Dates Dr. Allen Mitchell DO Primary Care Provider Active Team Status: Inactive Member Role/Relationship Status Dates Dr. Allen Mitchell DO Primary Care Provider Active Start: March 25, 2025 End: March 25, 2025 Dr. Alfredo Spicer DO Attending Provider Active Start: March 25, 2025 End: March 25, 2025 Dr. Alfredo Spicer DO Emergency Provider Active Start: March 25, 2025 End: March 25, 2025 Team Status: Inactive Member Role/Relationship Status Dates Dr. Allen Mitchell DO Primary Care Provider Active Start: April 11, 2025 End: April 11, 2025 Dr. Allen Mitchell DO Referring Provider Active Start: April 11, 2025 End: April 11, 2025 Osmin AGOSTO, PA Attending Provider Active Start: April 11, 2025 End: April 11, 2025 Goals (unrecognized section and content) Goals may be documented in a n alternate sectionGoals may be documented in an alternate sectionGoals may be documented in an alternate section (unrecognized sect ion and content) No Status Records Found INFORMATION SOURCE (unrecogn ized section and content) DATE CREATED AUTHOR 04/13/2025 [facility] FOR RECORDS PERTAINING TO PATIENTS WHO ARE [...] BE BASED ON THE PRIMARY CLINICAL RECORDS. [email or web address] [facility]. provides no warranty or guarantee of the accuracy or completeness of information in this document.
[2025-06-24 08:46] LABS: Hematocrit 41.9 % (40-54); Hemoglobin 14.6 g/dL (13.0-16.5); Mean Corp Hgb Conc 34.8 g/dL (32-36); Mean Corpuscular Volume 86.9 fL (80-94); Mean Platelet Vol. 9.6 fl (6.2-12.0); Platelet Count 288 K/mm3 (150-450); RBC Distribution Width CV 11.9 % (11.6-14.6); RBC Distribution Width SD 37.6 fl (35.1-43.9); Red Blood Count 4.82 M/mm3 (4.6-6.2); White Blood Count 6.0 K/mm3 (4.4-11.0)
[2025-06-24 10:40] LABS: AST(SGOT) 16 U/L (<=37); Alanine Aminotransfer ALT/SGPT 13 U/L (<=46); Albumin, Serum 4.5 g/dL (3.5-5.0); Alkaline Phosphatase 80 U/L (40-129); Anion Gap 12 (5-15); BUN 8 mg/dL (4-19); BUN/Creat Ratio 7.0 RATIO (10-20); Calcium,Total 9.6 mg/dL (7.6-11.0); Carbon Dioxide 22.4 mmol/L (21.0-32.0); Chloride 105 mmol/L (98-108); Cholesterol 144 mg/dL (<=200); Globulin 2.4 g/dL (2.2-4.2); Glucose 94 mg/dL (70-99); Low Density Lipoprotein Calc. 82 mg/dL; Potassium 3.8 mmol/L (3.3-5.1); Triglycerides 139 mg/dL; Very Low Density Lipoprotein 28 mg/dL (5-40); Vitamin D,25 Hydroxy 27.5 ng/mL (30-100); cholesterol:hdl ratio screen 4.26
== END | disposition home or self-care (01) ==
LOC: LAB 08:30
PROVIDERS: PCP Family Medicine; Referring Provider Psychiatry & Neurology Child & Adolescent Psychiatry; Visit Provider Psychiatry & Neurology Child & Adolescent Psychiatry
DX: Z79.899 Other long term (current) drug therapy (principal)
CPT/HCPCS: 36415; 80053; 80061; 82306; 83036; 84439; 84443; 85027